=== PATIENT | female | born 1970 | race Hispanic/Latino ===

== ENCOUNTER 2018-01-20 15:57 | Outpatient (CLI) | payer OTHER ==
--- NOTE | 2018-01-20 16:35 | Mammography Report ---
Screening mammogram: Baseline exam. Routine views demonstrates an intermediate density fibroglandular pattern. There is a nodular density in the retroareolar region on the right. With this exception the findings appear generally unremarkable bilaterally. CAD used. Impression: Right breast asymmetry. Recommendation: Compression imaging of the right breast and ultrasound is needed. BI-RADS CATEGORY: 0 = Needs additional imaging evaluation ACR BI-RADS MAMMOGRAPHIC CODES: 0 = Needs additional imaging evaluation; 1 = Negative; 2 = Benign; 3 = Probably benign; 4 = Suspicious; 5 = Malignant; 6 = Known biopsy-proven malignancy COMMENT: 1. Dense breast tissue, i.e., adenosis, fibrocystic changes, etc., may obscure an underlying neoplasm. 2. Approximately 10% of cancers are not detected with mammography. 3. A negative mammography report should not delay biopsy if a clinically suspicious mass is present.
== END 2018-01-20 15:58 | disposition home or self-care (01) ==
LOC: SPVWC 15:57
PROVIDERS: ATTEND Internal Medicine Endocrinology, Diabetes & Metabolism
DX: Z12.31 Encounter for screening mammogram for malignant neoplasm of breast (principal)
CPT/HCPCS: 77067

== ENCOUNTER 2018-02-14 09:07 | Outpatient (CLI) | payer OTHER ==
--- NOTE | 2018-02-14 14:34 | Mammography Report ---
RIGHT DIGITAL DIAGNOSTIC MAMMOGRAM : 02/14/18 09:07:00 CLINICAL: Recalled for asymmetry. COMPARISON:01/20/18 screening FINDINGS: Additional mammographic views were performed and are negative. IMPRESSION: Negative Mammogram. BI-RADS CATEGORY: 1 -- Negative RECOMMENDATION: Routine mammographic screening in one year. ACR BI-RADS MAMMOGRAPHIC CODES: 0 = Needs additional imaging evaluation; 1 = Negative; 2 = Benign; 3 = Probably benign; 4 = Suspicious; 5 = Malignant; 6 = Known biopsy-proven malignancy COMMENT: 1. Dense breast tissue, i.e., adenosis, fibrocystic changes, etc., may obscure an underlying neoplasm. 2. Approximately 10% of cancers are not detected with mammography. 3. A negative mammography report should not delay biopsy if a clinically suspicious mass is present. COMMENT: Patient follow-up letters are generated via our [employer] application.
== END 2018-02-14 09:08 | disposition home or self-care (01) ==
LOC: SPVWC 09:07
PROVIDERS: ATTEND Internal Medicine Endocrinology, Diabetes & Metabolism
DX: R92.8 Other abnormal and inconclusive findings on diagnostic imaging of breast (principal)

== ENCOUNTER 2018-11-09 13:23 | Outpatient (CLI) | payer OTHER ==
--- NOTE | 2018-11-09 15:11 | Mammography Report ---
BILATERAL DIGITAL DIAGNOSTIC MAMMOGRAM with CAD and RIGHT BREAST ULTRASOUND: 11/09/18 13:30:00 CLINICAL: Right breast lump felt by her doctor. She denies feeling a lump. COMPARISON:02/14/18 and 01/20/18 mammograms FINDINGS: There are bilateral scattered fibroglandular densities.No mass, architectural distortion or suspicious calcifications . Ultrasound of the right breast (including all four quadrants and the retroareolar area) was performed and demonstrated a benign cyst at 12 o'clock 5 cm from the nipple measuring 5 x 2 x 5 mm and a benign cyst at 1 o'clock 6 cm from the nipple measuring 3 x 2 x 3 mm. No solid mass or shadowing. IMPRESSION: Small benign cysts of the right breast and otherwise negative exams. BI-RADS CATEGORY: 2 -- Benign RECOMMENDATION: Clinical follow-up of the palpable area and routine mammographic screening in one year. ACR BI-RADS MAMMOGRAPHIC CODES: 0 = Needs additional imaging evaluation; 1 = Negative; 2 = Benign; 3 = Probably benign; 4 = Suspicious; 5 = Malignant; 6 = Known biopsy-proven malignancy COMMENT: 1. Dense breast tissue, i.e., adenosis, fibrocystic changes, etc., may obscure an underlying neoplasm. 2. Approximately 10% of cancers are not detected with mammography. 3. A negative mammography report should not delay biopsy if a clinically suspicious mass is present. COMMENT: Patient follow-up letters are generated by our [employer] application.
== END 2018-11-09 13:24 | disposition home or self-care (01) ==
LOC: SPVWC 13:23
PROVIDERS: ATTEND Obstetrics & Gynecology Gynecology
DX: N60.01 Solitary cyst of right breast (principal)
CPT/HCPCS: 77066

== ENCOUNTER 2020-12-24 14:05 | Outpatient (CLI) | payer OTHER ==
--- NOTE | 2020-12-25 08:11 | Mammography Report ---
DIGITAL SCREENING MAMMOGRAM WITH CAD, 12/24/2020 CLINICAL INFORMATION / INDICATION: Routine screening TECHNIQUE: Digital bilateral 2D mammography was obtained in the craniocaudal and mediolateral obliqu e projections. This examination was interpreted with the benefit of Computer-Aided Detection analysis . COMPARISON: 01/20/2018 FINDINGS: Breast Density: There are scattered areas of fibroglandular density. No dominant mass, suspicious calcifications, or architectural distortion in the right breast. Interval bilateral implant placement is noted. On cc implant displacement view only, in the mid depth of the central left breast just lateral to the midline plain, 5 mm apparently new rounded density is seen. IMPRESSION: Possible new density on the left Follow up recommendation: Left spot compression views and ultrasound if needed BI-RADS Category 0: Incomplete. Needs additional imaging evaluation and/or prior mammograms for alejandra britton. A "normal" or negative report should not discourage follow up or biopsy of a clinically significant f inding. A written summary of these findings will be mailed to the patient. The patient will be entered into a mammography reporting system which will generate a reminder letter for the patient's next appointmen t at the appropriate interval. The [employer] recommends yearly mammograms starting at age 40 and continuing as l heriberto as a woman is in good health. Breast MRI is recommended for women with an approximate 20-25% or greater lifetime risk of breast cancer, including women with a strong family history of breast or ova dm cancer or who have been treated for Hodgkin's disease. Signer Name: Jaime Aguilar MD Signed: 12/25/2020 8:06 AM Workstation Name: [id number]
== END 2020-12-24 14:06 | disposition home or self-care (01) ==
LOC: SPVWC 14:05
PROVIDERS: ATTEND Obstetrics & Gynecology Gynecology
DX: Z12.31 Encounter for screening mammogram for malignant neoplasm of breast (principal); N64.89 Other specified disorders of breast
CPT/HCPCS: 77067